=== PATIENT | male | born 1990 | race Two or more races ===

== ENCOUNTER 2024-02-15 08:24 | Emergency (ER) | payer MEDICAID ==
[~2024-02-15] VITALS: Ht 160 cm; Wt 80.4 kg
[2024-02-15 08:49] VITALS: BP 120/65; PULSE 80; RESP 16; TEMP 98.1; O2SAT 97
[2024-02-15] MEDS: TETANUS-DIPTH-ACEL PERTUSSIS 0.5ML SYR Tdap IM ONE (09:09)
[2024-02-15] MEDS: AMPICILLIN & SULBACTAM SODIUM 3 GM in SODIUM CHL 0.9% 100 ML IV ONE (09:44)
[2024-02-15 10:33] LABS: Hepatitis B Surface Antibody Negative (Negative)
[2024-02-15 10:45] LABS: Hepatitis B Surface Antigen Negative (Negative)
[2024-02-15] MEDS ORDERED: AUG875T PO (11:01)
== END 2024-02-15 10:59 | disposition home or self-care (01) ==
LOC: ER 08:24
DX: S01.311A Laceration without foreign body of right ear, initial encounter (principal); Y04.2XXA Assault by strike against or bumped into by another person, initial encounter; Y93.89 Activity, other specified; Y92.89 Other specified places as the place of occurrence of the external cause; Y99.8 Other external cause status
CPT/HCPCS: 12011; 36415; 86703; 86706; 86803; 87340; 90471; 90715; 96365